=== PATIENT | female | born 1965 ===

== ENCOUNTER 2018-02-03 08:59 | Emergency (ER) | payer OTHER ==
--- NOTE | 2018-02-03 09:27 | C.PDOC ---
History Of Present Illness 52 year old female presents to the ER with a complaint of nausea, vomiting, diarrhea, and myalgias since last night. Patient has positive sick contacts at home with the same symptoms. Denies fever or focal abdominal pain. NVD, MYALGIA SINCE LAST NIGHT. NO FEVER. +SICK CONTACT W SAME. NO FOCAL ABD PAIN EXAM MILD DIST NONTOXIC HEENT MMM SUPPLE ABD SOFT NT ND NO R/G GOOD TURGOR REMAINDER NEG Time Seen by Provider: 02/03/18 09:19 Chief Complaint (Nursing): Flu-like Symptoms History Per: Patient History/Exam Limitations: no limitations Onset/Duration Of Symptoms: Hrs Current Symptoms Are (Timing): Still Present Associated Symptoms: Nausea, Vomiting, Diarrhea, Other ((+) Myalgias. (-) Abdominal pain.). denies: Fever Exacerbating Factors: None Alleviating Factors: None Recent travel outside of the [place]: No Abnormal Vaginal Bleeding: No Past Medical History Reviewed: Historical Data, Nursing Documentation, Vital Signs Vital Signs: Last Vital Signs Temp 98.4 F 02/03/18 11:59 Pulse 56 L 02/03/18 11:59 Resp 20 02/03/18 11:59 BP 98/65 L 02/03/18 11:59 Pulse Ox 100 02/03/18 11:59 Family History: States: Unknown Family Hx - Social History Hx Alcohol Use: No Hx Substance Use: No - Immunization History Hx Tetanus Toxoid Vaccination: No Hx Influenza Vaccination: No Hx Pneumococcal Vaccination: No Review Of Systems Except As Marked, All Systems Reviewed And Found Negative. Constitutional: Negative for: Fever Gastrointestinal: Positive for: Nausea, Vomiting, Diarrhea. Negative for: Abdominal Pain Musculoskeletal: Positive for: Other (Myalgias) Physical Exam - Physical Exam Appears: Non-toxic, Other (Mild distress) Skin: Normal Color, Warm, Dry, Other (Good turgor) Head: Atraumatic, Normacephalic Eye(s): bilateral: Normal Inspection Ear(s): Bilateral: Normal Nose: Normal Oral Mucosa: Moist Throat: Normal, No Erythema, No Exudate Neck: Normal, Supple Chest: Symmetrical, No Tenderness Cardiovascular: Rhythm Regular Respiratory: Normal Breath Sounds, No Accessory Muscle Use Gastrointestinal/Abdominal: Soft, No Tenderness, No Distention, No Guarding, No Rebound Neurological/Psych: Oriented x3, Normal Speech ED Course And Treatment O2 Sat by Pulse Oximetry: 100 (Room air) Pulse Ox Interpretation: Normal Reevaluation Time: 10:59 Reassessment Condition: Improved (TOLERATING PO, FEELS BETTER. APPEARS COMFORTABLE, IMPROVED COMPARED TO PRIOR) Medical Decision Making Medical Decision Making: Plan: * Toradol * Zofran Disposition Counseled Patient/Family Regarding: Diagnosis, Need For Followup, Rx Given - Disposition Referrals: [facility] [Outside] [facility] [Outside] Disposition: HOME/ ROUTINE Disposition Time: 13:42 Condition: IMPROVED Prescriptions: Meclizine [Antivert] 50 mg PO TID PRN #15 tab PRN Reason: Dizziness Ondansetron [Zofran Odt] 4 mg PO TID PRN #9 odt PRN Reason: Nausea/Vomiting Instructions: Vertigo (a Type of Dizziness), Nausea and Vomiting, Adult (DC) Forms: [employer] (Monegasque) - Clinical Impression Clinical Impression: Vertigo, Vomiting - Scribe Statement The provider has reviewed the documentation as recorded by the Scribrobin Javier All medical record entries made by the Scribe were at my direction and personally dictated by me. I have reviewed the chart and agree that the record accurately reflects my personal performance of the history, physical exam, medical decision making, and the department course for this patient. I have also personally directed, reviewed, and agree with the discharge instructions and disposition.
[2018-02-03 10:46] VITALS: RESP 20; TEMP 98.4
[2018-02-03 13:57] VITALS: BP 113/77; PULSE 69; O2SAT 99
== END 2018-02-03 14:00 | disposition home or self-care (01) ==
LOC: C.ER 08:59
DX: R42 Dizziness and giddiness (principal); R11.10 Vomiting, unspecified
CPT/HCPCS: 96372; 99285; J1885

== ENCOUNTER 2018-11-24 15:57 | Emergency (ER) | payer OTHER ==
[2018-11-24 16:27] VITALS: BMI 26.0
[2018-11-24 16:30] VITALS: BP 135/86; PULSE 72; RESP 18; TEMP 98.1; O2SAT 96
--- NOTE | 2018-11-24 18:20 | C.PDOC ---
History Of Present Illness 53 years old female presents to ED for complaints of mid-sternal chest pain associated with subjective dyspnea that began 3 days ago. Denies fever, or any other complaints. descibes pain as pressure pain. no trauma Time Seen by Provider: 11/24/18 18:12 Chief Complaint (Nursing): Chest Pain History Per: Patient History/Exam Limitations: no limitations Onset/Duration Of Symptoms: Days (3) Current Symptoms Are (Timing): Still Present Quality: Pressure Associated Symptoms: Dyspnea Modifying Factors: None Exacerbating Factors: None Alleviating Factors: None Recent travel outside of the [place]: No Past Medical History Reviewed: Historical Data, Nursing Documentation, Vital Signs Vital Signs: Last Vital Signs Temp 98.1 F 11/24/18 16:27 Pulse 72 11/24/18 16:27 Resp 18 11/24/18 16:27 BP 135/86 11/24/18 16:27 Pulse Ox 96 11/24/18 16:27 - Medical History PMH: No Chronic Diseases Family History: States: Unknown Family Hx - Social History Hx Alcohol Use: No Hx Substance Use: No - Immunization History Hx Tetanus Toxoid Vaccination: No Hx Influenza Vaccination: No Hx Pneumococcal Vaccination: No Review Of Systems Constitutional: Negative for: Fever, Chills Cardiovascular: Positive for: Chest Pain Gastrointestinal: Negative for: Nausea, Vomiting, Abdominal Pain, Diarrhea Skin: Negative for: Rash Neurological: Negative for: Weakness, Numbness Physical Exam - Physical Exam Appears: Well, Non-toxic, No Acute Distress Skin: Normal Color, Warm, Dry, No Rash Head: Atraumatic, Normacephalic Eye(s): bilateral: Normal Inspection, PERRL, EOMI Oral Mucosa: Moist Neck: Normal ROM, Supple Chest: Symmetrical, No Tenderness Cardiovascular: Rhythm Regular, No Murmur Respiratory: Normal Breath Sounds, No Accessory Muscle Use, No Rales, No Rhonchi, No Wheezing Gastrointestinal/Abdominal: Bowel Sounds (Active ), Soft, No Tenderness, No Guarding, No Rebound Extremity: Normal ROM Extremity: Bilateral: Atraumatic, Normal Color And Temperature, Normal ROM Pulses: Left Radial: Normal, Right Radial: Normal Neurological/Psych: Oriented x3, Normal Speech Gait: Steady ED Course And Treatment - Laboratory Results Result Diagrams: 11/24/18 18:29 11/24/18 18:29 O2 Sat by Pulse Oximetry: 96 (RA) Pulse Ox Interpretation: Normal Against Medical Advice - AMA Patient Left Against Medical Advice: The patient declines admission to the hospital and wishes to leave the Emergency Department. This action is against my medical advice. This decision was made w ith informed refusal. The patient was told that admission to the hospital is necessary. Explanation of the reasons why were discussed. The risks of leaving were explained to the patient and include, but are not limited to, worsening of known or currently unknown conditions, permanent disability and from undiagnosed or untreated conditions. The patient has the capacity to make this informed decision and understands my explanation of the current medical problem and risks of leaving. The patient voluntarily accepts these risks and signed an AMA form documenting our conversation. The patient was given the opportunity to ask questions and reconsider. The patient was encouraged to return to the Emergency Department at any time for further care. Medical Decision Making Medical Decision Making: cp ro acs pe pna Plan: * EKG * Blood work * CXR * Urinalysis EKG: * Normal sinus rhythm at 67 bpm * Urinalysis labs neg. requsted pt to be obs for serial trop and cards eval possible stress. explained risk. needs to take care of children. reutrn precautions advied. Disposition - Disposition Referrals: [facility] [Outside] [facility] [Outside] [facility] [Outside] Disposition: AGAINST MEDICAL ADVICE Disposition Time: 20:14 Condition: STABLE Additional Instructions: return to er with worsening symptoms or concerns. Instructions: Chest Pain, Leaving Against Medical Advice Forms: [employer] (Barbadian) - Clinical Impression Clinical Impression: Chest pain, Left against medical advice - Scribe Statement The provider has reviewed the documentation as recorded by the Olivaibrobin Allen All medical record entries made by the Scribe were at my direction and personally dictated by me. I have reviewed the chart and agree that the record accurately reflects my personal performance of the history, physical exam, medical decision making, and the department course for this patient. I have also personally directed, reviewed, and agree with the discharge instructions and disposition.
[2018-11-24 18:32] LABS: BASO % 0.3 % (0.0-2.0); EOS # 0.2 K/uL (0.0-0.7); EOS % 3.1 % (0.0-4.0); HEMOGLOBIN 14.6 g/dL (11.0-16.0); LYMPH % 28.5 % (20.0-40.0); MEAN CELL VOLUME 85.1 fL (81.0-99.0); MEAN CORPUSCULAR HGB CONC 34.1 g/dL (33.0-37.0); MEAN PLATELET VOLUME 8.3 fL (7.2-11.7); MONO # 0.5 K/uL (0.0-0.8); MONO % 6.3 % (0.0-10.0); NEUT # 4.4 K/uL (1.8-7.0); NEUT % 61.8 % (50.0-75.0); RBC 5.02 Mil/uL (3.80-5.20); RED CELL DISTRIBUTION WIDTH 13.2 % (11.5-14.5); WHITE BLOOD COUNT 7.1 K/uL (4.8-10.8)
[2018-11-24 18:35] LABS: HCG,QUALITATIVE URINE NEGATIVE (NEGATIVE)
[2018-11-24 18:37] LABS: SQUAMOUS EPITHIAL < 1 /hpf (0-5); URINE BACTERIA RARE (<OCC); URINE BILIRUBIN NEGATIVE (NEGATIVE); URINE BLOOD 1+ (NEGATIVE); URINE CLARITY Clear (Clear); URINE COLOR Straw (YELLOW); URINE GLUCOSE (UA) NORMAL (Normal); URINE LEUKOCYTE ESTERASE NEG Leu/uL (Negative); URINE PROTEIN NEGATIVE (NEGATIVE); URINE UROBILINOGEN NORMAL mg/dL (0.2-1.0)
[2018-11-24 18:42] LABS: INR 1.1; PARTIAL THROMBOPLASTIN TIME 35 SECONDS (21-34); PROTHROMBIN TIME 12.3 SECONDS (9.7-12.2)
[2018-11-24 18:48] LABS: D DIMER < 200 ng/mlDDU (0-243)
--- NOTE | 2018-11-24 19:05 | RAD ---
Date of service: 11/24/2018 HISTORY: chest pain COMPARISON: No prior. TECHNIQUE: Chest PA and lateral FINDINGS: LUNGS: No active pulmonary disease. PLEURA: No significant pleural effusion identified. No pneumothorax apparent. CARDIOVASCULAR: No aortic atherosclerotic calcification present. Normal cardiac size. No pulmonary vascular congestion. OSSEOUS STRUCTURES: No significant abnormalities. VISUALIZED UPPER ABDOMEN: Normal. OTHER FINDINGS: None. IMPRESSION: No active disease.
[2018-11-24 19:17] LABS: ALB/GLOB RATIO 1.5 (1.0-2.1); ALT/SGPT 19 U/L (9-52); AST/SGOT 23 U/L (14-36); B-TYPE NATRIURETIC PEPTIDE 29.4 pg/mL (0-900); BLOOD UREA NITROGEN 17 mg/dL (7-17); CALCIUM 9.6 mg/dl (8.6-10.4); GFR NON-AFRICAN AMERICAN > 60
--- NOTE | 2018-11-25 12:07 | CARD ---
APPROVED REPORT Date of service: 11/24/2018 EKG Measurement Heart [id number] <Conclusion> Normal sinus rhythm with sinus arrhythmia Normal ECG
== END 2018-11-24 18:12 | disposition left against medical advice (07) ==
LOC: C.ER 15:57
DX: R07.9 Chest pain, unspecified (principal)

== ENCOUNTER 2019-01-16 09:15 | Outpatient (CLI) | payer OTHER | END 2019-01-16 09:16 | disposition home or self-care (01) | LOC: C.MAMMO 09:15 | DX: Z12.31 Encounter for screening mammogram for malignant neoplasm of breast (principal) ==